=== PATIENT | female | born 1980 | race Caucasian/White ===

== ENCOUNTER 2016-04-01 08:51 | Emergency (ER) | payer OTHER ==
[2016-04-01 09:01] VITALS: BP 108/73; PULSE 98; TEMP 97.8; BMI 23.0
[2016-04-01] MEDS ORDERED: KETOROLAC TROMETHAMINE 60 MG/2 ML VIAL IM ONE (09:30)
[2016-04-01] MEDS ORDERED: KETOROLAC TROMETHAMINE 60 MG/2 ML VIAL ONE (09:43)
[2016-04-01 10:24] LABS: MCHC 33.9 g/dl (32.0-36.0); MEAN CELL VOLUME 85.6 fl (80-96); MEAN PLT VOLUME 8.4 fl (7.5-11.1); PLATELET COUNT 272 K/MM3 (134-434); RDW 14.8 % (11.6-15.6); WHITE BLOOD COUNT 6.6 K/mm3 (4.0-10.0)
[2016-04-01 10:39] LABS: ANION GAP 4 (8-16); CALCIUM 8.9 mg/dL (8.5-10.1); CO2 29 mmol/L (21-32); CREATININE 0.5 mg/dL (0.55-1.02); GLUCOSE,RANDOM 82 mg/dL (74-106)
[2016-04-01 10:41] LABS: TROPONIN I < 0.02 ng/ml (0.00-0.05)
[2016-04-01 11:32] LABS: C-REACTIVE PROTEIN < 0.3 MG/DL (0.00-0.3)
--- NOTE | 2016-04-01 11:59 | PDOC ---
History of Present Illness - General Chief Complaint: Back Pain Stated Complaint: LOWER BACK PAIN Time Seen by Provider: 04/01/16 09:30 History Source: Patient Exam Limitations: No Limitations - History of Present Illness Initial Comments: 04/01/16 11:54 CC 2 DAYS OF FEVER AND COUGH; TODAY WITH LEFT LETERAL CHEST PAIN, WHICH INCREASES WITH DEEP BREATHING AND COUGH; CONCERNED TRAVELING TO [facility]ET [employer] [facility]ATIVE OVER WEEK END Past History - Past Medical History Allergies/Adverse Reactions: Allergies Allergy/AdvReac Type Severity Reaction Status Date / Time No Known Allergies Allergy Unverified 04/01/16 08:58 Home Medications: Ambulatory Orders Sulfamethoxazole/Trimethoprim [Bactrim DS -] 1 tab PO BID #14 tablet 05/19/13 Anemia: Yes (sickle cell trait) Cardiac Disorders: Yes (MVP) - Immunization History Immunization Up to Date: Yes (no flu) - Psycho/Social/Smoking Cessation Hx Anxiety: No Suicidal Ideation: No Smoking History: Former smoker Have you smoked in the past 12 months: No Number of Cigarettes Smoked Daily: 4 Information on smoking cessation initiated: No Hx Alcohol Use: No Drug/Substance Use Hx: Yes Substance Use Type: Marijuana Review of Systems - Review of Systems Constitutional: Yes: Symptoms Reported. No: Chills, Fever, Malaise HEENTM: No: Symptoms Reported Respiratory: Yes: Symptoms reported, Cough, Shortness of Breath, Productive cough Cardiac (ROS): Yes: Chest Pain. No: Symptoms Reported, Irregular Heart Rate, Palpitations ABD/GI: No: Symptoms Reported : No: Symptoms Reported Musculoskeletal: No: Symptoms Reported *Physical Exam - Vital Signs Last Vital Signs Temp Pulse Resp BP Pulse Ox 97.8 F 98 H 20 108/73 98 04/01/16 08:59 04/01/16 08:59 04/01/16 08:59 04/01/16 08:59 04/01/16 08:59 - Physical Exam General Appearance: Yes: Appropriately Dressed. No: Apparent Distress HEENT: positive: TMs Normal, Pharynx Normal, Nasal Congestion, Rhinorrhea. negative: TM Bulging, TM Dull, TM Erythema Neck: positive: Supple. negative: Tender, Rigid, Lymphadenopathy (R), Lymphadenopathy (L) Respiratory/Chest: positive: Lungs Clear, Normal Breath Sounds, Respiratory Distress. negative: Chest Tender, Accessory Muscle Use Cardiovascular: positive: Regular Rhythm, Regular Rate. negative: Murmur ED Treatment Course - LABORATORY CBC & Chemistry Diagram: 04/01/16 09:37 04/01/16 09:37 - ADDITIONAL ORDERS Additional order review: Laboratory Results 04/01/16 04/01/16 09:37 09:35 Sodium 142 Potassium 3.8 Chloride 109 H Carbon Dioxide 29 Anion Gap 4 L BUN 11 Creatinine 0.5 L Random Glucose 82 Calcium 8.9 Creatine Kinase 55 Troponin I < 0.02 C-Reactive Protein < 0.3 Urine HCG, Qual Negative 04/01/16 09:37 RBC 3.87 MCV 85.6 MCHC 33.9 RDW 14.8 MPV 8.4 - RADIOLOGY Radiology Studies Ordered: Category Date Time Status CHEST PA & LAT [RAD] Stat Radiology 04/01/16 09:32 Taken - Medications Given in the ED: ED Medications Discontinued Medications Generic Name Dose Route Start Last Admin Trade Name Freq PRN Reason Stop Dose Admin Ketorolac Tromethamine 60 mg 04/01/16 09:30 04/01/16 10:02 Toradol Injection - IM 04/01/16 09:31 60 mg ONCE ONE Administration Medical Decision Making - Medical Decision Making 04/01/16 11:57 WILL START Z SHARMILA AND ALBUTEROL AT HOME FOR BRONCHITIS; WILL SUGGEST ADVIL FOR PAIN *DC/Admit/Observation/Transfer Diagnosis at time of Disposition: Bronchitis - Discharge Dispostion Disposition: HOME Condition at time of disposition: Stable Admit: No - Referrals Referrals: Norberto Flood MD [Primary Care Provider] - - Patient Instructions Additional Instructions: PLEASE TAKE ADVIL 400MG FOR PAIN; REST; LOTS OF FLUIDS; AVOID SICK RELATIVE IF YOU REMAIN SICK; RETURN FOR INCREASED SYMPTOMS - Post Discharge Activity Work/School Note: Back to Work
[2016-04-01 12:26] LABS: ERYTHROCYTE SEDIMENTATION RATE 15 mm/hr (0-20)
== END 2016-04-01 12:06 | disposition home or self-care (01) ==
LOC: JERFT 08:51
PROC: 3E0233Z Introduction of Anti-inflammatory into Muscle, Percutaneous Approach (ICD-10-PCS; principal; 2016-04-01)
DX: J40 Bronchitis, not specified as acute or chronic (principal)
CPT/HCPCS: 36415; 71020-TC; 80048; 82550; 84484; 84703; 85027; 85651; 86140; 96372; 99281-25

== ENCOUNTER 2016-05-05 15:07 | Emergency (ER) | payer OTHER ==
[2016-05-05 15:11] VITALS: TEMP 97.6; BMI 23.0
--- NOTE | 2016-05-05 15:33 | PDOC ---
History of Present Illness - General Chief Complaint: Pain, Acute Stated Complaint: ABD PAIN, BACK PAIN Time Seen by Provider: 05/05/16 15:31 History Source: Patient - History of Present Illness Initial Comments: 05/05/16 16:54 CHIEF COMPLAINT: Abdominal pain PCP: Dr. Herman Lazo HISTORY OF PRESENT ILLNESS: 35 year old female presented to the ED with chief complaints of abdominal pain x 2 days. A/c to the patient, she developed abdominal pain located in the lower quadrants, crampy and sharp in nature, describes as ovulatory pain but worse, 8/10 in intensity, constant, radiating to the back, left > right. No vaginal discharge, itching, bleeding, nausea, vomiting. LMP was 10 days ago. Has been having unprotected sexual intercourse with her . No new partners since 12 years. Denies chest pain, sob, cough, palpitation, dizziness, headache. Recent Travel: None PAST MEDICAL HISTORY: B/L tubal ligation 2012; C-sec x 2, Ovarian cyst, Kidney cyst, DNC due to miscarriage in 2008 PAST SURGICAL HISTORY: As mentioned above Social History: Smoking: Trying to quit, now smokes 2 cigs/day. Smokes marijuana everyday. Alcohol: Denies Drugs: Denies Family History: None Allergies: NKDA 05/05/16 17:24 Past History - Past Medical History Allergies/Adverse Reactions: Allergies Allergy/AdvReac Type Severity Reaction Status Date / Time No Known Allergies Allergy Verified 05/05/16 15:11 Home Medications: Ambulatory Orders Ibuprofen [Motrin -] 400 mg PO TID #20 tablet 05/05/16 Anemia: Yes (sickle cell trait) Cardiac Disorders: Yes (MVP) GI Disorders: Yes (HERNIA) - Surgical History Abdominal Surgery: (TUBAL LIGATION, D AND C) - Immunization History Immunization Up to Date: Yes (no flu) - Psycho/Social/Smoking Cessation Hx Anxiety: No Suicidal Ideation: No Smoking History: Current every day smoker Have you smoked in the past 12 months: No Number of Cigarettes Smoked Daily: 1 Information on smoking cessation initiated: No Hx Alcohol Use: No Drug/Substance Use Hx: No Substance Use Type: Marijuana Review of Systems - Review of Systems Able to Perform ROS?: Yes Comments:: 05/05/16 17:06 CONSTITUTIONAL: Absent: fever, chills, diaphoresis, generalized weakness, malaise, loss of appetite HEENT: Absent: rhinorrhea, nasal congestion, throat pain, throat swelling, difficulty swallowing, mouth swelling, ear pain, eye pain, visual Changes CARDIOVASCULAR: Absent: chest pain, syncope, palpitations, irregular heart rate, lightheadedness , peripheral edema RESPIRATORY: Absent: cough, shortness of breath, dyspnea with exertion, orthopnea, wheezing, stridor, hemoptysis GASTROINTESTINAL: Present: abdominal pain Absent: abdominal distension, nausea, vomiting, diarrhea, constipation, melena, hematochezia GENITOURINARY: Present: flank pain Absent: dysuria, frequency, urgency, hesitancy, hematuria, genital pain MUSCULOSKELETAL: Absent: myalgia, arthralgia, joint swelling SKIN: Absent: rash, itching, pallor HEMATOLOGIC/IMMUNOLOGIC: Absent: easy bleeding, easy bruising, lymphadenopathy, frequent infections ENDOCRINE: Absent: unexplained weight gain, unexplained weight loss, heat intolerance, cold intolerance NEUROLOGIC: Absent: headache, focal weakness or paresthesias, dizziness, unsteady gait, seizure, mental status changes, bladder or bowel incontinence PSYCHIATRIC: Absent: anxiety, depression, suicidal or homicidal ideation, hallucinations. Is the patient limited Telugu proficient: No *Physical Exam - Vital Signs Last Vital Signs Temp Pulse Resp BP Pulse Ox 97.6 F 86 16 116/77 99 05/05/16 15:09 05/05/16 15:09 05/05/16 15:09 05/05/16 15:09 05/05/16 15:09 - Physical Exam Comments: 05/05/16 17:14 PE: GENERAL: Awake, alert, and fully oriented, in no acute distress HEAD: No signs of trauma EYES: PERRLA, EOMI, sclera anicteric, conjunctiva clear ENT: Auricles normal inspection, hearing grossly normal, nares patent, oropharynx clear without exudates. Moist mucosa NECK: Normal ROM, supple, no lymphadenopathy, JVD, or masses LUNGS: Breath sounds equal, clear to auscultation bilaterally. No wheezes, and no crackles.. HEART: Regular rate and rhythm, normal S1 and S2, no murmurs, rubs or gallops ABDOMEN: Soft, tenderness on palpation over the suprapubic pain, normoactive bowel sounds. No guarding, no rebound. No masses Per vaginal examination/Per speculum examination: Normal, no cervical motion tenderness. EXTREMITIES: Normal range of motion, no edema. No clubbing or cyanosis. No cords, erythema, or tenderness NEUROLOGICAL: Cranial nerves II through XII grossly intact. Normal speech, normal gait SKIN: Warm, Dry, normal turgor, no rashes or lesions noted. ED Treatment Course - LABORATORY CBC & Chemistry Diagram: 05/05/16 16:36 05/05/16 16:36 Medical Decision Making - Medical Decision Making 05/05/16 15:40 Patient seen and examined. Looks comfortable. Vitals unremarkable. Physical examination: positive finding include suprapubic tenderness. Will order Cbc, cmp, UA, test, Transvaginal ultrasound IV fluids IV Ketorolac 04/2016 17:00 Patient reassessed. No complaints. Pain resolved with Ketorolac, feels much better. Labs noted, WNL. Transvaginal ultrasound pending. Patient wants to do Transvaginal ultrasound as outpatient. On the basis of history and physical examination, left pelvic pain, unknown etiology. However, would like to rule out salpingitis, ovarian torsion. Urine test negative . 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 Illness, Investigation and Plan of care explained to the patient. She verbalized understanding. Case seen and discussed with Dr. Bar. *DC/Admit/Observation/Transfer Diagnosis at time of Disposition: Abdominal pain - Discharge Dispostion Disposition: HOME Admit: No - Prescriptions Prescriptions: Ibuprofen [Motrin -] 400 mg PO TID #20 tablet - Referrals Referrals: Norberto Flood MD [Primary Care Provider] - - Patient Instructions Additional Instructions: Your blood work looks normal. Urine test is negative. Please make sure to follow up with your primary doctor tomorrow. Return to the Emergency Department immediately if your symptoms persist or you develop new symptoms.
[2016-05-05] MEDS ORDERED: KETOROLAC TROMETHAMINE 30 MG/1 ML VIAL IVPUSH ONE (16:22)
--- NOTE | 2016-05-05 16:22 | PDOC ---
Attending Attestation - Resident Resident Name: Miladis Boyce - ED Attending Attestation I have performed the following: I have examined & evaluated the patient, The case was reviewed & discussed with the resident, I agree w/resident's findings & plan, Exceptions are as noted - HPI HPI: 05/05/16 16:20 Agree with the resident's HPI as documented in the electronic medical record. - Physicial Exam PE: 05/05/16 16:20 Agree with the resident's HPI as documented in the electronic medical record. - Medical Decision Making 05/05/16 16:21 35-year-old female with history of ovarian cyst and BTL years ago presents to the emergency department with 4 day history of constant lower abdominal cramping left greater than right and left adnexal and suprapubic tenderness on physical exam. Differential diagnosis includes but is not limited to: Ectopic , ovarian cysts, ovarian torsion, UTI, endometriosis, salpingitis. Plan: 1. Labs 2. Pain management 3. Urine 4. Pelvic ultrasound 5. Observe and reevaluate
[2016-05-05] MEDS ORDERED: SODIUM CHLORIDE 1,000 ML IV SCH (16:30)
[2016-05-05] MEDS ORDERED: KETOROLAC TROMETHAMINE 30 MG/1 ML VIAL ONE (16:38)
[2016-05-05 17:14] LABS: MCH 29.3 pg (25.7-33.7); MCHC 34.1 g/dl (32.0-36.0); MEAN CELL VOLUME 85.9 fl (80-96); MEAN PLT VOLUME 8.9 fl (7.5-11.1); PLATELET COUNT 263 K/MM3 (134-434); RDW 14.8 % (11.6-15.6); WHITE BLOOD COUNT 6.6 K/mm3 (4.0-10.0)
[2016-05-05 17:16] LABS: URINE APPEARANCE CLEAR; URINE BILIRUBIN NEGATIVE (NEGATIVE); URINE BLOOD NEGATIVE (NEGATIVE); URINE COLOR STRAW; URINE GLUCOSE (UA) NEGATIVE (NEGATIVE); URINE KETONE NEGATIVE (NEGATIVE); URINE LEUK ESTERASE NEGATIVE (NEGATIVE); URINE NITRITE NEGATIVE (NEGATIVE); URINE PROTEIN NEGATIVE (NEGATIVE); URINE UROBILINOGEN NEGATIVE E.U./dl (0.2-1.0)
[2016-05-05 17:33] VITALS: BP 112/79; PULSE 125
[2016-05-05 17:42] LABS: ALBUMIN 4.2 g/dl (3.4-5.0); ALK PHOS 44 U/L (45-117); ANION GAP 5 (8-16); BILIRUBIN,TOTAL 0.2 mg/dL (0.2-1.0); CALCIUM 8.8 mg/dL (8.5-10.1); CO2 29 mmol/L (21-32); CREATININE 0.6 mg/dL (0.55-1.02); GLUCOSE,RANDOM 90 mg/dL (74-106); SGOT/AST 6 U/L (15-37); SGPT/ALT 19 U/L (12-78)
== END 2016-05-05 18:06 | disposition home or self-care (01) ==
LOC: JER 15:07
PROC: 3E0333Z Introduction of Anti-inflammatory into Peripheral Vein, Percutaneous Approach (ICD-10-PCS; principal; 2016-05-05)
DX: R10.30 Lower abdominal pain, unspecified (principal); F17.210 Nicotine dependence, cigarettes, uncomplicated
CPT/HCPCS: 36415; 80053; 81003; 84703; 85027; 96374; 99284-25

== ENCOUNTER 2018-10-01 08:36 | Emergency (ER) | payer OTHER ==
[2018-10-01 08:56] VITALS: BP 107/64; PULSE 74; TEMP 98.3; BMI 22.6
--- NOTE | 2018-10-01 08:57 | PDOC ---
History of Present Illness - General Chief Complaint: Head/Neck problem Stated Complaint: NECK PAIN Time Seen by Provider: 10/01/18 08:42 History Source: Patient Exam Limitations: No Limitations Past History - Past Medical History Allergies/Adverse Reactions: Allergies Allergy/AdvReac Type Severity Reaction Status Date / Time No Known Drug Allergies Allergy Verified 10/01/18 08:38 Home Medications: Ambulatory Orders Ibuprofen [Motrin -] 400 mg PO TID #20 tablet 05/05/16 NK [No Known Home Medication] 01/27/17 Anemia: No Asthma: No Cancer: No Cardiac Disorders: Yes (heart murmur) CVA: No COPD: No CHF: No Dementia: No Diabetes: No GI Disorders: No Disorders: No HTN: No Hypercholesterolemia: No Liver Disease: No Seizures: No Thyroid Disease: No - Surgical History Abdominal Surgery: (TUBAL LIGATION, D AND C) - Immunization History Immunization Up to Date: Yes (no flu) - Suicide/Smoking/Psychosocial Hx Smoking Status: Yes Smoking History: Never smoked Have you smoked in the past 12 months: Yes Number of Cigarettes Smoked Daily: 3 If you are a former smoker, when did you quit?: 09/24 Cigars Per Day: 3 'Breaking Loose' booklet given: 10/21/11 Hx Alcohol Use: No Drug/Substance Use Hx: No Substance Use Type: None, Marijuana Hx Substance Use Treatment: No *Physical Exam - Vital Signs Last Vital Signs Temp Pulse Resp BP Pulse Ox 98.3 F 74 18 107/64 97 10/01/18 08:39 10/01/18 08:39 10/01/18 08:39 10/01/18 08:39 10/01/18 08:39 - Physical Exam General Appearance: No: Apparent Distress HEENT: positive: Normal ENT Inspection, TMs Normal, Pharynx Normal Neck: positive: Supple. negative: Lymphadenopathy (R), Lymphadenopathy (L), Rigidity Respiratory/Chest: positive: Lungs Clear, Normal Breath Sounds. negative: Respiratory Distress Cardiovascular: positive: Regular Rhythm, Regular Rate, S1, S2. negative: Murmur Gastrointestinal/Abdominal: positive: Normal Bowel Sounds, Soft. negative: Tender, Distended, Guarding, Rebound Integumentary: positive: Normal Color Neurologic: positive: Alert, Normal Mood/Affect Medical Decision Making - Medical Decision Making 37 y/o F with hx of sickle cell trait who presents with R sided throat pain x 2 years, worsening the past 5 days. Patient is worried that someone is missing something. 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 States last year, she has had US done of thyroid, thyroid nuclear scan and laryngoscopy done; the only notable findings were cyst on thyroid, which her ENT doctor told her was too small to biopsy. States pain eventually went away and now it has returned. Denies fever, cough, dysphagia, odynophagia, changes in voice, sob, cp, abd pain, n/v. Patient reassured that current PE is normal Advised f/u with her ENT 10/01/18 08:56 *DC/Admit/Observation/Transfer Diagnosis at time of Disposition: Throat pain in adult - Discharge Dispostion Disposition: HOME Condition at time of disposition: Stable Decision to Admit order: No - Referrals - Patient Instructions Additional Instructions: Thank you for choosing [facility]. It was a pleasure taking care of you. At this time, there are no worrisome signs of infection Please continue follow-up with your ENT and primary care doctor Return to the Emergency Department if your symptoms worsen or persist, you have fever, difficulty swallowing or unable to swallow or other concerning symptoms. - Post Discharge Activity
== END 2018-10-01 09:00 | disposition home or self-care (01) ==
LOC: JER 08:36
DX: R07.0 Pain in throat (principal); D57.3 Sickle-cell trait
CPT/HCPCS: 99282-25